=== PATIENT | male | born 1980 | race Hispanic/Latino ===

== ENCOUNTER 2024-09-15 19:27 | Emergency (ER) | payer OTHER ==
[~2024-09-15] VITALS: Ht 162.6 cm; Wt 70.0 kg
[2024-09-15] MEDS: 0.9%NACL 1000ML 1,000 ML IV ONE ×2 (20:15→21:18)
[2024-09-15 20:19] LABS: BASOPHILS # (AUTO) 0.06 K/uL (0.00-0.20); BASOPHILS % (AUTO) 0.9 % (0.0-5.0); EOSINOPHILS # (AUTO) 0.09 K/uL (0.00-0.70); EOSINOPHILS % (AUTO) 1.3 % (0.0-8.0); HEMATOCRIT 41.4 % (42-54); IMMATURE GRANULOCYTE ABSOLUTE 0.02 K/uL (0-1); LYMPHOCYTES # (AUTO) 2.1 K/uL (1.0-4.8); LYMPHOCYTES % (AUTO) 30.6 % (21.0-51.0); MEAN CORPUSCULAR HEMOGLOBIN 29.3 pg (27.0-33.0); MEAN CORPUSCULAR HGB CONC 34.1 g/dL (32.0-36.0); MEAN CORPUSCULAR VOLUME 86.1 fL (79-99); MONOCYTES # (AUTO) 0.6 K/uL (0.1-1.0); MONOCYTES % (AUTO) 9.3 % (3.0-13.0); NEUTROPHILS # (AUTO) 3.9 K/uL (1.8-7.7); NEUTROPHILS % (AUTO) 57.6 % (40.0-77.0); PLATELET COUNT (AUTO) 213 K/uL (130-400); RED BLOOD CELL COUNT(AUTO) 4.81 MIL/uL (4.50-6.20); RED CELL DISTRIBUTION WIDTH 13.5 % (11.0-15.5); WHITE BLOOD COUNT (AUTO) 6.7 K/uL (4.8-10.8)
[2024-09-15 20:37] LABS: ALBUMIN 3.4 g/dL (3.5-5.0); BILIRUBIN,TOTAL 0.5 mg/dL (0.2-1.0); CREATININE 1.2 mg/dL (0.5-1.3); POTASSIUM 4.2 mmol/L (3.5-5.1); TOTAL PROTEIN, SERUM 7.9 g/dL (6.0-8.3)
[2024-09-15] MEDS: INSULIN humuLIN R 100 UNIT/ML 3ML IV ONE (21:18)
[2024-09-15 21:53] VITALS: BP 150/92; PULSE 74; RESP 16; TEMP 98.4; O2SAT 99
--- NOTE | 2024-09-15 22:15 | ERN ---
General Chief Complaint: Medical Clearance Stated Complaint: MEDICAL CLEARANCE Time Seen by MD: 19:28 Time Seen by Midlevel: 19:28 History of Present Illness Allergies: Coded Allergies: No Known Allergies (Unverified Allergy, Unknown, 09/15/24) Past Medical History Past Medical History: Diabetes-Type II Past Surgical History: None Results Laboratory and Microbiology Lab and Micro Result Laboratory Tests Test 09/15/24 19:52 09/15/24 20:10 Whole Blood Glucose 405 MG/DL (70-110) *H Bedside Glucose Comment Notified Nurse White Blood Count 6.7 K/uL (4.8-10.8) Red Blood Count 4.81 MIL/uL (4.50-6.20) Hemoglobin 14.1 g/dL (14.0-18.0) Hematocrit 41.4 % (42-54) L Mean Corpuscular Volume 86.1 fL (79-99) Mean Corpuscular Hemoglobin 29.3 pg (27.0-33.0) Mean Corpuscular Hemoglobin Concent 34.1 g/dL (32.0-36.0) Red Cell Distribution Width 13.5 % (11.0-15.5) Platelet Count 213 K/uL (130-400) Mean Platelet Volume 11.3 fL (7.5-10.5) H Immature Granulocyte % (Auto) 0.3 % (0-1) Neutrophils (%) (Auto) 57.6 % (40.0-77.0) Lymphocytes (%) (Auto) 30.6 % (21.0-51.0) Monocytes (%) (Auto) 9.3 % (3.0-13.0) Eosinophils (%) (Auto) 1.3 % (0.0-8.0) Basophils (%) (Auto) 0.9 % (0.0-5.0) Neutrophils # (Auto) 3.9 K/uL (1.8-7.7) Lymphocytes # (Auto) 2.1 K/uL (1.0-4.8) Monocytes # (Auto) 0.6 K/uL (0.1-1.0) Eosinophils # (Auto) 0.09 K/uL (0.00-0.70) Basophils # (Auto) 0.06 K/uL (0.00-0.20) Absolute Immature Granulocyte (auto 0.02 K/uL (0-1) Nucleated Red Blood Cells 0.0 % (0.0-0.19) Sodium Level 133 mmol/L (136-145) L Potassium Level 4.2 mmol/L (3.5-5.1) Chloride Level 97 mmol/L (101-111) L Carbon Dioxide Level 27 mmol/L (21-32) Blood Urea Nitrogen 16 mg/dL (7-18) Creatinine 1.2 mg/dL (0.5-1.3) Glomerular Filtration Rate Calc 77 mL/min (>90) Random Glucose 421 mg/dL (70-105) *H Whole Blood Ketones Quantitative 0.2 mmol/L (0.0-0.6) Lactic Acid Level 1.8 mmol/L (0.8-2.5) Total Calcium 9.5 mg/dL (8.5-10.1) Total Bilirubin 0.5 mg/dL (0.2-1.0) Aspartate Amino Transf (AST/SGOT) 20 U/L (10-37) Alanine Aminotransferase (ALT/SGPT) 25 U/L (12-78) Alkaline Phosphatase 105 U/L (50-136) Total Protein 7.9 g/dL (6.0-8.3) Albumin 3.4 g/dL (3.5-5.0) L ED Course Orders Procedure Category Date Status Time Cbc With Differential LAB 09/15/24 Complete 20:03 Comprehensive LAB 09/15/24 Complete Metabolic Panel 20:03 Ketone Blood LAB 09/15/24 Complete Quantitative 20:03 0.9%Nacl 1000ml (Ns PHA 09/15/24 Complete 1000ml) 20:30 Lactic Acid LAB 09/15/24 Complete 20:05 0.9%Nacl 1000ml (Ns PHA 09/15/24 Complete 1000ml) 21:00 Insulin Regular, PHA 09/15/24 Complete Human 3ml (Humulin R 21:00 Bedside Glucose CPOE 09/15/24 Transmitted Fingerstick 21:27 Current Medications Medications (Trade) Dose Ordered Sig/Darwin Route PRN Reason Start Time Stop Time Status Last Admin Dose Admin Insulin Human Regular (humuLIN R 100 UNIT/ML 3ML) 5 unit ONCE ONCE IV 09/15/24 21:00 09/15/24 21:01 DC 09/15/24 21:18 Sodium Chloride 1,000 ml @ 0 mls/hr ONCE ONCE IV 09/15/24 20:30 09/15/24 20:31 DC 09/15/24 20:15 Sodium Chloride 1,000 ml @ 0 mls/hr ONCE ONCE IV 09/15/24 21:00 09/15/24 21:01 DC 09/15/24 21:18 Vital Signs Date Time Temp Pulse Resp B/P (MAP) Pulse Ox O2 Delivery O2 Flow Rate FiO2 09/15/24 21:53 98.4 74 16 150/92 99 Room Air* 0 21 09/15/24 19:53 98.4 74 16 161/106 99 Room Air* 0 21 09/15/24 19:28 97.5 74 20 176/103 100 Room Air DX & DISP Disposition: Discharge Departure Impression: Primary Impression: Uncontrolled diabetes mellitus with hyperglycemia Additional Impression: Medical clearance for incarceration Condition: Stable Referrals: SELF,REFERRAL (PCP) I have reviewed the case, and I agree with, Diagnosis and Plan ISAC WEVAER Sep 15, 2024 22:15
== END 2024-09-15 22:29 ==
LOC: EDH 19:27 → EEVIPCON 19:27 → EDH 22:29
DX: E11.65 Type 2 diabetes mellitus with hyperglycemia (principal); Z02.89 Encounter for other administrative examinations
CPT/HCPCS: 99283; 96374; 96361; 80053; 85025; 82948 ×2; 83605; 82010; 36415; J1815; J7030 ×2

== ENCOUNTER 2024-09-16 08:32 | Emergency (ER) | payer OTHER ==
[~2024-09-16] VITALS: Ht 170.2 cm; Wt 72.6 kg
[2024-09-16] MEDS: INSULIN humuLIN R 100 UNIT/ML 3ML SQ ONE (10:06)
[2024-09-16] MEDS: INSULIN humuLIN R 100 UNIT/ML 3ML ONE (10:07)
--- NOTE | 2024-09-16 10:47 | ERN ---
General Chief Complaint: Medical Clearance Stated Complaint: MEDICAL CLEARANCE Time Seen by MD: 08:38 Source: patient History of Present Illness Initial Comments PATIENT IS A 43-YEAR-OLD MALE COMING IN DUE TO ELEVATED BLOOD GLUCOSE. PATIENT WAS RECENTLY SEEN AND DISCHARGED IN STABLE CONDITION. PER LAW ENFORCEMENT PATIENT WAS SEEN TO HAVE ELEVATED BLOOD GLUCOSE AND WAS BROUGHT IN FOR CLEARANCE. Allergies: Coded Allergies: No Known Allergies (Unverified Allergy, Unknown, 09/15/24) Past Medical History Past Medical History: Diabetes-Type II Past Surgical History: None ROS Dictation CONSTITUTIONAL: NO CHILLS, NO FEVER, NO WEAKNESS, NO DIAPHORESIS, NO MALAISE. HEAD/FACE: NO SIGNS OF TRAUMA. EENT: NO EYE PAIN, NO BLURRED VISION, NO TEARING, NO DOUBLE VISION, NO EAR PAIN, NO EAR DISCHARGE, NO NOSE PAIN, NO NASAL CONGESTION, NO THROAT PAIN, NO THROAT SWELLING, NO MOUTH PAIN. RESPIRATORY: NO COUGH, NO ORTHOPNEA, NO SOB, NO STRIDOR, NO WHEEZING. CARDIOVASCULAR: NO CHEST PAIN, NO EDEMA, NO PALPITATIONS, NO SYNCOPE. GASTROINTESTINAL/ABDOMINAL: NO ABDOMINAL PAIN, NO CONSTIPATION, NO DIARRHEA, NO NAUSEA, NO VOMITING. GENITOURINARY: NO ABNORMAL DISCHARGE, NO DYSURIA, NO FREQUENT URINATION, NO HEMATURIA. NO COMPLAINTS OF PAIN IN THE GENITALS. MUSCULOSKELETAL: NO BACK PAIN, NO GOUT, NO JOINT PAIN, NO JOINT SWELLING, NO MUSCLE PAIN, NO MUSCLE STIFFNESS, NO NECK PAIN. INTEGUMENTARY: NO CHANGE IN COLOR, NO CHANGE IN HAIR/NAILS, NO DRYNESS, NO LESION, NO LUMPS, NO RASH. NEUROLOGICAL/PSYCH: NO ANXIETY, NOT DEPRESSED, NO EMOTIONAL PROBLEM, NO HEADACHE, NO NUMBNESS, NO PRE-EXISTING DEFICIT, NO HISTORY OF SEIZURES, NO TREMORS, NO WEAKNESS. HEMATOLOGIC/LYMPHATIC: NOT ANEMIC, NO HISTORY OF BLOOD CLOTS, NO APPARENT BLEEDING, NO BRUISING, GLANDS NOT SWOLLEN. ALL SYSTEMS NEGATIVE, EXCEPT NOTED. Physical Exam Physical Exam Dictation VITAL SIGNS: REVIEWED. GENERAL APPEARANCE: ALERT, ORIENTED X3, NO ACUTE DISTRESS, OBESE. HEAD AND FACE: NON-TRAUMATIC. EYES: PERRL, PINK CONJUNCTIVAS, EYELID NO TRAUMA, ANTERIOR CHAMBER CLEAR. EARS: PINNAS INTACT AND NO SIGNS OF TRAUMA OR ERYTHEMA. EAR CANALS CLEAR AND NO DISCHARGE. TMS NO ERYTHEMA. NOSE: NO DISCHARGE, NO BLEEDING. OROPHARYNX: MOUTH NORMAL, TEETH NO CARIES, TONGUE PINK. PHARYNX CLEAR, NO ERYT ANABELLE. TONSILS NO EXUDATES, NO ABSCESSES NOTED. MUCOUS MEMBRANE MOIST. NECK: SUPPLE, NON-TENDER, NO THYROMEGALY, NO MASSES, NO JVD, NO BRUITS. BREAST: DEFERRED. CHEST: NO TENDERNESS, NO CREPITUS, NO PARADOXICAL MOVEMENT, NO RETRACTIONS. LUNGS: CLEAR, WELL-VENTILATED, SYMMETRIC, NO RALES, NO WHEEZING, NO RHONCHI, NO STRIDOR, GOOD BREATH SOUNDS BILATERALLY. HEART: REGULAR RATE, REGULAR RHYTHM, NO MURMUR, NO GALLOPS. VASCULAR: NO PERIPHERAL EDEMA. ABDOMEN: SOFT, POSITIVE BOWEL SOUNDS, NONDISTENDED, NO GUARDING, NONTENDER, NO REBOUND, NO MASSES NO HEPATOMEGALY, NO SPLENOMEGALY, NO SILVA'S SIGN, NO HERNIAS. RECTAL: DEFERRED. GENITAL: DEFERRED. NEUROLOGICAL: NORMAL SPEECH, GROSS MOTOR FUNCTION INTACT, GROSS SENSORY FUNCTION INTACT. MUSCULOSKELETAL: NECK NONTENDER, FULL RANGE OF MOTION, BACK NONTENDER, FULL RANGE OF MOTION. EXTREMITIES: NONTENDER, FULL RANGE OF MOTION. SKIN: COLOR PINK, DRY, NO TURGOR, NO RASH, NO LACERATIONS, NO ABRASIONS, NO CONTUSIONS. LYMPHATICS: DEFERRED. Results Laboratory and Microbiology Lab and Micro Result Laboratory Tests Test 09/16/24 08:46 09/16/24 10:32 Whole Blood Glucose 351 MG/DL (70-110) #H 312 MG/DL (70-110) H Labs Reviewed?: Yes MDM MDM: DIFFERENTIAL DIAGNOSIS: HYPERGLYCEMIA, DIABETES MELLITUS HYPERGLYCEMIA, UNCONTROLLED DIABETES MELLITUS, RATIONALE: TESTS CONSIDERED AND ORDERED SECONDARY TO SHARED DECISION MAKING INCLUDE: PREVIOUS OUTSIDE RECORDS REVIEWED: OLD ER VISITS. RISK OF COMPLICATION AND/OR MORBIDITY OR MORTALITY OF PATIENT MANAGEMENT: NONE MEDICATIONS-PER MEDICATION RECONCILIATION NEED FOR HOSPITALIZATION: PATIENT DOES NOT MEET CRITERIA FOR HOSPITALIZATION. PATIENT IS A 43-YEAR-OLD MALE COMING IN DUE TO ELEVATED BLOOD GLUCOSE. PATIENT RECEIVED SLIDING SCALE INSULIN WILL BE DISCHARGED IN STABLE CONDITION. PATIENT WAS RECENTLY SEEN FOR SAME REASON. ABOUT GLUCOSE TRENDING DOWN AFTER SLIDING SCALE. ED Course Orders Procedure Category Date Status Time Bedside Glucose CPOE 09/16/24 Transmitted Fingerstick 08:48 Initiate KIMBER 09/16/24 In Process Hyperglycemia Protoco 08:59 Insulin Regular, PHA 09/16/24 In Process Human 3ml (Humulin R 11:30 Insulin Regular, PHA 09/16/24 Complete Human 3ml (Humulin R 10:00 Insulin Regular, PHA 09/16/24 Complete Human 3ml (Humulin R 09:53 Current Medications Medications (Trade) Dose Ordered Sig/Darwin Route PRN Reason Start Time Stop Time Status Last Admin Dose Admin Insulin Human Regular (humuLIN R 100 UNIT/ML 3ML) 16 unit ONCE ONCE SQ 09/16/24 10:00 09/16/24 10:01 DC 09/16/24 10:06 Insulin Human Regular (humuLIN R 100 UNIT/ML 3ML) 300 unit STK-MED ONCE .ROUTE 09/16/24 09:53 09/16/24 09:53 DC Insulin Human Regular (humuLIN R 100 UNIT/ML 3ML) INSULIN SLIDING SCAL... ACHS SQ 09/16/24 11:30 10/16/24 11:29 Vital Signs Date Time Temp Pulse Resp B/P (MAP) Pulse Ox O2 Delivery O2 Flow Rate FiO2 09/16/24 08:33 97.9 65 20 141/97 99 Room Air DX & DISP Disposition: Discharge Departure Impression: Primary Impression: Medical clearance for incarceration Additional Impression: Uncontrolled diabetes mellitus with hyperglycemia Condition: Stable Additional Instructions: FOLLOW-UP WITH PRIMARY CARE PROVIDER IN 1 TO 2 DAYS. TAKE MEDICATIONS DIRECTED HERE IN THE EMERGENCY ROOM. OKAY TO CONTINUE HOME MEDICATIONS UNLESS OTHERWISE DISCUSSED DURING YOUR VISIT IN THE EMERGENCY ROOM TODAY. RETURN TO YOUR NEAREST EMERGENCY ROOM IF SYMPTOMS WORSEN OR IF THERE IS NO IMPROVEMENT. CALL 911 IF YOU NEED IMMEDIATE ASSISTANCE. TAKE TYLENOL [id number] NEEDED AND IF NO CONTRAINDICATIONS ARE PRESENT. INCREASE ORAL HYDRATION. A WOUND CULTURE OR URINE CULTURE WAS ORDERED HERE IN THE EMERGENCY ROOM DEPARTMENT PLEASE FOLLOW-UP WITH PRIMARY CARE PROVIDER AND ADVISE THEM TO GET REPEAT PORTS FROM OUR FACILITY. IF YOU HAD ANY ADITI WRAP/SPLINTS THAT WERE APPLIED HERE, PLEASE DO NOT REMOVE THEM UNTIL YOU SEE YOUR PRIMARY CARE OR SPECIALTY. REFERRALS: Referrals: SELF,REFERRAL (PCP) ISAC MORA MD Time of Disposition: 10:47 MEEK PEREZ MD Sep 16, 2024 10:47
[2024-09-16 11:02] VITALS: BP 135/89; PULSE 65; RESP 20; TEMP 97.9; O2SAT 99
[2024-09-16] MEDS ORDERED: INSULIN humuLIN R 100 UNIT/ML 3ML SQ SCH (11:30)
== END 2024-09-16 11:04 | disposition home or self-care (01) ==
LOC: EDH 08:32 → EEVIPCON 08:32 → EDH 11:04
DX: E11.65 Type 2 diabetes mellitus with hyperglycemia (principal)
CPT/HCPCS: 99283; 82948 ×3; 96372; J1815